=== PATIENT | female | born 1990 | race Hispanic/Latino ===

== ENCOUNTER 2022-10-05 07:58 | Inpatient (IN) | payer BC ==
[2022-10-05] MEDS ORDERED: Bupivacaine 0.25% HCL 30 ML VIAL ONE (08:00)
[2022-10-05] MEDS ORDERED: Diphenoxylate HCl/Atropine Tablet PO PRN ×2 (18:56)
[2022-10-05] MEDS ORDERED: Promethazine HCl 25 MG/ML VIAL IM PRN (18:56)
[2022-10-05] MEDS ORDERED: Lidocaine 1% (PF) 30 ML VIAL SC PRN (18:56)
[2022-10-05] MEDS ORDERED: Carboprost 250 MCG/ML AMP IM PRN (18:56)
[2022-10-05] MEDS ORDERED: Lactated Ringer's 1,000 ML IV SCH (18:56)
[2022-10-05] MEDS ORDERED: NS w/ Oxytocin 30 units 500 ML IV SCH ×2 (18:56)
[2022-10-05] MEDS ORDERED: Butorphanol Tartrate 1 MG/ML VIAL SLOW IVP PRN (18:56)
[2022-10-05] MEDS ORDERED: Acetaminophen 500 MG TAB PO PRN (18:56)
[2022-10-05] MEDS ORDERED: Tranexamic Acid 1,000 MG/10 ML VIAL IVP PRN (18:56)
[2022-10-05] MEDS ORDERED: Methylergonovine 0.2 MG/ML VIAL IM PRN (18:56)
[2022-10-05] MEDS ORDERED: hydrALAZINE 20 MG/ML VIAL SLOW IVP PRN (18:56)
[2022-10-05] MEDS ORDERED: Misoprostol 200 MCG TAB PR PRN (18:56)
[2022-10-05] MEDS ORDERED: Ondansetron PF 4 MG/2 ML Vial IVP PRN (18:56)
[2022-10-05] MEDS ORDERED: Misoprostol 100 MCG TAB VAG SCH (18:56)
[2022-10-05] MEDS ORDERED: HYDROcodone/Acetaminophen 5/325 mg Tablet PO PRN ×2 (18:56)
[2022-10-05] MEDS ORDERED: Ibuprofen 800 MG TAB PO PRN (18:56)
[2022-10-05 19:57] LABS: Hemoglobin 11.4 g/dL (12.0-15.5); Mean Corpuscular HGB CONC 33.3 g/dL (32.0-36.0); Mean Corpuscular Hemoglobin 29.2 pg (27.0-33.0); Mean Corpuscular Volume 87.7 fl (81.6-98.3); Mean Platelet Volume 10.1 fl (7.4-10.4); Platelet Count 236 10x3/uL (150-450); RBC Distribution Width 13.1 % (11.5-14.5)
[2022-10-05 20:42] VITALS: BMI 43.7
[2022-10-05 20:45] LABS: HBSAg Index 0.21 S/CO (0-0.99); Hep B Surf Ag - L&D Non-Reactive S/CO (NonReactive); Syphilis Antibody Nonreactive (Nonreactive); Syphilis Antibody Index 0.03 S/CO (<1.00 Non-Reactive)
[2022-10-05] MEDS ORDERED: Fentanyl 2 mcg/Bup 0.1% Cadd 100 ML ONE (23:55)
[2022-10-06] MEDS ORDERED: Lidocaine 1% (PF) 30 ML VIAL ONE (00:05)
[2022-10-06] MEDS ORDERED: Oxytocin 10 UNITS/ML VIAL ONE (00:06)
[2022-10-06] MEDS ORDERED: Lactated Ringer's 500 ML IV PRN (00:32)
[2022-10-06] MEDS ORDERED: Acetaminophen 325 MG TAB PO PRN (00:32)
[2022-10-06] MEDS ORDERED: diphenhydrAMINE 50 MG/ML VIAL IVP PRN (00:32)
[2022-10-06] MEDS ORDERED: Promethazine HCl 25 MG/ML VIAL IM PRN (00:32)
[2022-10-06] MEDS ORDERED: Naloxone HCl 0.4 mg/ml Vial IVP PRN ×2 (00:32)
[2022-10-06] MEDS ORDERED: Ondansetron PF 4 MG/2 ML Vial IVP PRN (00:32)
[2022-10-06] MEDS ORDERED: ePHEDrine Sulfate 50 MG/10 ML VIAL SLOW IVP PRN (00:32)
[2022-10-06] MEDS ORDERED: Moisturizing Cream (Eucerin) 113 GM JAR TOP PRN (00:32)
[2022-10-06] MEDS ORDERED: Communication Order-Pharmacy FS SCH (00:45)
[2022-10-06] MEDS ORDERED: Fentanyl 2 mcg/Bupivacaine 0.1% Cassette 100 ML EPIDURAL SCH (00:45)
[2022-10-06] MEDS ORDERED: Milk Of Magnesia 30 ML UDCUP PO PRN (01:42)
[2022-10-06] MEDS ORDERED: Boostrix 0.5 ML (Tdap) VIAL (>/=7 yrs of age) IM ONE (01:42)
[2022-10-06] MEDS ORDERED: Benzocaine-Menthol 82.5 ML CAN TOP PRN (01:42)
[2022-10-06] MEDS ORDERED: hydrALAZINE 20 MG/ML VIAL SLOW IVP PRN (01:42)
[2022-10-06] MEDS ORDERED: Lanolin Ointment 7 GM TUBE TOP PRN (01:42)
[2022-10-06] MEDS ORDERED: diphenhydrAMINE 25 MG CAP PO PRN (01:42)
[2022-10-06] MEDS ORDERED: traMADol HCl 50 MG TAB PO PRN (01:42)
[2022-10-06] MEDS ORDERED: Bisacodyl 10 MG SUPP PR PRN (01:42)
[2022-10-06] MEDS: metFORMIN 500 MG TAB PO SCH ×2 (08:26→18:01)
[2022-10-06] MEDS: Docusate 100 MG CAP PO SCH ×2 (08:26→21:31)
[2022-10-06] MEDS: Prenatal Vitamin 1 TAB PO SCH (08:26)
[2022-10-06] MEDS: Ferrous Sulfate 325 MG TAB PO SCH ×2 (08:26→16:47)
[2022-10-06] MEDS: Ibuprofen 800 MG TAB PO SCH ×3 (14:48→21:32)
[2022-10-07] MEDS: Ibuprofen 800 MG TAB PO SCH ×3 (06:03→21:32)
[2022-10-07] MEDS: Ferrous Sulfate 325 MG TAB PO SCH (07:15)
[2022-10-07] MEDS: Docusate 100 MG CAP PO SCH ×2 (10:06→21:32)
[2022-10-07] MEDS: metFORMIN 500 MG TAB PO SCH ×2 (10:06→18:33)
[2022-10-07] MEDS: Prenatal Vitamin 1 TAB PO SCH (10:06)
[2022-10-08] MEDS: Ibuprofen 800 MG TAB PO SCH ×2 (06:06→14:57)
[2022-10-08] MEDS: Ferrous Sulfate 325 MG TAB PO SCH ×2 (07:06→16:14)
[2022-10-08] MEDS: Prenatal Vitamin 1 TAB PO SCH (08:17)
[2022-10-08] MEDS: metFORMIN 500 MG TAB PO SCH ×2 (08:17→17:36)
[2022-10-08] MEDS: Docusate 100 MG CAP PO SCH (08:17)
[2022-10-08 08:24] VITALS: BP 126/74; TEMP 99.1
== END 2022-10-08 20:40 | disposition home or self-care (01) | DRG 807 ==
LOC: CSHLD 18:39 → CSHANTE 10-06 09:15
PROVIDERS: ADMIT Obstetrics & Gynecology; ATTEND Obstetrics & Gynecology
PROC: 10E0XZZ Delivery of Products of Conception, External Approach (ICD-10-PCS; principal; 2022-10-06)
DX: O24.12 Pre-existing type 2 diabetes mellitus, in childbirth (principal); Z37.0 Single live birth; E11.9 Type 2 diabetes mellitus without complications; Z3A.39 39 weeks gestation of pregnancy; Z79.84 Long term (current) use of oral hypoglycemic drugs
CPT/HCPCS: 36416; 51702; 85027; 86780; 86850; 86900; 86901; 87340; J2590; S0020